=== PATIENT | male | born 1980 | race Caucasian/White ===

== ENCOUNTER → 2016-04-26 | Outpatient (CLI) | payer OTHER ==
[~2016-04-26] MED LIST: COMPAZINE10 MG PO; DEXAMETHASONE 44 M1 PO; DIPHENHIST50 MG PO; NORCO 5-325 TA1 EACH PO; ONDANSETRON HCL4 M2 PO; PREDNISONE50 MG PO
[2016-04-26 11:13] LABS: ABSOLUTE NEUTROPHILS 5.8 thou/uL (1.4-8.2); BASOPHILS 0.1 % (0.0-2.0); EOSINOPHILS 0.6 % (0.0-3.0); HEMATOCRIT 44.5 % (42.0-52.0); HEMOGLOBIN 15.3 gm/dL (14.0-18.0); LYMPHOCYTES 12.7 % (24.0-44.0); MCH 27.6 pg (26.0-34.0); MCHC 34.4 % (28.0-37.0); MCV 80.1 fL (80.0-100.0); MONOCYTES 2.8 % (1.0-8.0); PLATELET COUNT 112 thou/uL (150-400); POLYS 83.8 % (36.0-66.0); RBC 5.56 mil/uL (4.50-6.00); RDW 14.3 % (10.5-14.5); WBC 6.9 thou/uL (4.0-11.0)
[2016-04-26 11:14] LABS: MANUAL DIFF NO
[2016-04-26 11:17] LABS: CREATININE 0.8 mg/dL (0.6-1.3); POTASSIUM 3.8 mmol/L (3.5-5.1)
[2016-04-26 11:22] LABS: ALBUMIN 3.4 g/dL (3.4-5.0); MAGNESIUM 1.8 mg/dL (1.8-2.4); TOTAL BILIRUBIN 1.2 mg/dL (<0.1-1.0); TOTAL PROTEIN 6.6 g/dL (6.4-8.2)
[2016-04-26 16:38] VITALS: BP 93/69
== END ==
LOC: OPONC 03:53
PROVIDERS: Internal Medicine Hematology & Oncology
DX: C62.90 Malignant neoplasm of unspecified testis, unspecified whether descended or undescended (principal)
CPT/HCPCS: 95112

== ENCOUNTER → 2016-05-09 | Outpatient (CLI) | payer OTHER ==
[2016-05-09 09:33] LABS: HEMATOCRIT 39.4 % (42.0-52.0); HEMOGLOBIN 13.4 gm/dL (14.0-18.0); MCH 27.8 pg (26.0-34.0); MCHC 34.1 % (28.0-37.0); MCV 81.7 fL (80.0-100.0); PLATELET COUNT 270 thou/uL (150-400); RBC 4.83 mil/uL (4.50-6.00); RDW 15.9 % (10.5-14.5); WBC 13.3 thou/uL (4.0-11.0)
[2016-05-09 09:34] LABS: MANUAL DIFF YES
[2016-05-09 09:47] LABS: ANION GAP 8 mmol/L (7-16); BUN 12 mg/dL (7-18); CALCIUM 9.2 mg/dL (8.5-10.1); CHLORIDE 103 mmol/L (98-107); CO2 29 mmol/L (21-32); CREATININE 0.6 mg/dL (0.6-1.3); GLUCOSE 93 mg/dL (70-99); POTASSIUM 4.2 mmol/L (3.5-5.1); SODIUM 140 mmol/L (136-145)
[2016-05-09 09:53] LABS: ALBUMIN 3.8 g/dL (3.4-5.0); ALKALINE PHOSPHATASE 92 U/L (46-116); MAGNESIUM 1.9 mg/dL (1.8-2.4); SGOT < 5 U/L (15-37); SGPT 11 U/L (30-65); TOTAL BILIRUBIN 0.3 mg/dL (<0.1-1.0)
[2016-05-09 09:57] LABS: ABSOLUTE NEUTROPHILS 9.4 thou/uL (1.4-8.2); METAMYELOCYTES 12 %; MYELOCYTES 1 %; TOTAL CELL COUNT 100
[2016-05-09 09:58] LABS: ANISOCYTOSIS 1+
[2016-05-09 13:13] VITALS: BP 94/63
== END ==
LOC: OPONC 02:10
PROVIDERS: Internal Medicine Hematology & Oncology
DX: Z51.11 Encounter for antineoplastic chemotherapy (principal); C62.90 Malignant neoplasm of unspecified testis, unspecified whether descended or undescended
CPT/HCPCS: 95001

== ENCOUNTER → 2016-05-10 | Outpatient (CLI) | payer OTHER ==
[2016-05-10 08:50] VITALS: BP 100/61
== END ==
LOC: OPONC 02:04
DX: Z51.11 Encounter for antineoplastic chemotherapy (principal); C62.90 Malignant neoplasm of unspecified testis, unspecified whether descended or undescended
CPT/HCPCS: 95001

== ENCOUNTER → 2016-05-11 | Outpatient (CLI) | payer OTHER ==
[2016-05-11 09:20] VITALS: BP 102/66
== END ==
LOC: OPONC 02:40
DX: Z51.11 Encounter for antineoplastic chemotherapy (principal); C62.90 Malignant neoplasm of unspecified testis, unspecified whether descended or undescended
CPT/HCPCS: 95001

== ENCOUNTER → 2016-05-12 | Outpatient (CLI) | payer OTHER ==
[2016-05-12 08:49] VITALS: BP 98/61
== END ==
LOC: OPONC 02:15
DX: Z51.11 Encounter for antineoplastic chemotherapy (principal); C62.90 Malignant neoplasm of unspecified testis, unspecified whether descended or undescended
CPT/HCPCS: 95001

== ENCOUNTER → 2016-05-13 | Outpatient (CLI) | payer OTHER ==
[2016-05-13 08:54] VITALS: BP 102/67
== END ==
LOC: OPONC 02:41
DX: Z51.11 Encounter for antineoplastic chemotherapy (principal); C62.90 Malignant neoplasm of unspecified testis, unspecified whether descended or undescended